=== PATIENT | female | born 1995 | race African-American/Black ===

== ENCOUNTER 2021-03-04 12:58 | Inpatient (IN) ==
[2021-03-04] MEDS: LACTATED RINGERS 1,000 ML IV SCH ×2 (12:45→14:37)
[~2021-03-04 12:58] MED LIST: BUTORPHANOL 2 MG/ML VIAL IV PRN; MEPERIDINE 50 MG/1 ML VIAL IV PRN; ONDANSETRON 4 MG/2 ML VIAL IV PRN
[2021-03-04] MEDS ORDERED: ACETAMINOPHEN 500 MG TABLET PO ONE (13:04)
[2021-03-04] MEDS ORDERED: AMPICILLIN INJ 2,000 MG in SODIUM CHLORIDE 0.9% 100 ML IV ONE (13:06)
[2021-03-04 13:18] LABS: Basophils % 0.1 % (0.0-0.8); Eosinophils # 0.1 10*3/uL (0.0-0.87); Eosinophils % 0.7 % (0.00-10.9); Hemoglobin 11.9 GM/DL (12.0-16.0); Immature Granulocytes % 0.3 %; Immature Granulocytes Absolute 0.03 #; Lymphocytes # 1.4 10*3/uL (1.4-4.0); Lymphocytes % 14.4 % (21.3-54.2); Mean Corpuscular HGB Conc 31.3 GM/DL (32-36); Mean Corpuscular Volume 94.3 FL (87-102); Mean Platelet Volume 10.3 FL (9.6-12.0); Neutrophils % 79.5 % (38.7-73.9); Red Blood Count 4.03 MC/CUMM (3.8-5.5); Red Cell Distribution Width 14.4 % (9.3-17.3)
[2021-03-04 13:20] LABS: Platelet Count 259 T/CUMM (130-400)
[2021-03-04] MEDS ORDERED: CITRIC ACID/SODIUM CITRATE 30 ML UDCUP PO ONE (13:57)
[2021-03-04] MEDS ORDERED: FAMOTIDINE 20 MG/2 ML VIAL IV ONE (13:57)
[2021-03-04] MEDS ORDERED: OXYTOCIN 10 UNIT/ML VIAL IM ONE (14:04)
[2021-03-04] MEDS ORDERED: OXYTOCIN/LR 30 UNIT/1,000 ML BAG IV ONE ×2 (14:04→17:12)
[2021-03-04] MEDS ORDERED: ONDANSETRON 4 MG/2 ML VIAL ONE (14:17)
[2021-03-04] MEDS ORDERED: PHENYLEPHRINE 1 MG/10 ML SYRINGE IV ONE (14:17)
[2021-03-04] MEDS ORDERED: ceFAZolin 2,000 MG/50 ML DUPLEX IV ONE (14:29)
[2021-03-04 15:35] LABS: Bilirubin,Urine Negative (Negative); Blood, Urine Negative (Negative); Glucose,Urine (UA) Negative (Negative); Ketones,Urine Negative (Negative); Mucus,Urine Occasional /LPF (Occasional); Nitrite,Urine Negative (Negative); Protein,Urine Negative; Squamous Epithelial Cell,Urine Occasional /HPF (0-10); Urine Appearance CLEAR (Clear); Urine Color Yellow (Yellow); Urine Specific Gravity 1.012 (1.001-1.035); Urine Urobilinogen < 2.0 EU/DL (<2.0)
[2021-03-04 15:55] LABS: Cord Arterial Blood HCO3 19.1 MMOL/L
[2021-03-04 15:57] LABS: Cord Venous Blood HCO3 20.5 MMOL/L; Cord Venous Blood PO2 20.9
[2021-03-04] MEDS ORDERED: OXYTOCIN/LR 20 UNIT/1,000 ML BAG IV ONE (16:28)
[2021-03-04] MEDS ORDERED: MAGNESIUM HYDROXIDE SUSP 30 ML UDCUP PO PRN (16:28)
[2021-03-04] MEDS ORDERED: ONDANSETRON 4 MG/2 ML VIAL IV PRN (16:28)
[2021-03-04] MEDS ORDERED: SIMETHICONE CHEW 80 MG TABLET PO PRN (16:28)
[2021-03-04] MEDS ORDERED: RHO(D) IMMUNE GLOBULIN 300 MCG SYRINGE IM ONE (16:28)
[2021-03-04] MEDS ORDERED: ACETAMINOPHEN 325 MG TABLET PO PRN (16:28)
[2021-03-04] MEDS ORDERED: LACTATED RINGERS 1,000 ML IV SCH (16:30)
[2021-03-04] MEDS ORDERED: OXYTOCIN 30 UNIT in DEXTROSE 5% LACTATED RINGERS 1,000 ML IV ONE (17:09)
[2021-03-04] MEDS ORDERED: AMPICILLIN INJ 1,000 MG in SODIUM CHLORIDE 0.9% 100 ML IV SCH (17:30)
[2021-03-04] MEDS: KETOROLAC 30 MG/1 ML VIAL IV SCH ×2 (18:02→23:34)
[2021-03-04] MEDS: ACETAMINOPHEN 500 MG TABLET PO SCH (20:06)
[2021-03-04] MEDS: DOCUSATE SODIUM 100 MG CAPSULE PO SCH (20:06)
[2021-03-04] MEDS: IBUPROFEN 800 MG TABLET PO PRN (23:41)
[2021-03-04 23:58] LABS: Eosinophils % 0.2 % (0.00-10.9); Immature Granulocytes % 0.3 %; Immature Granulocytes Absolute 0.03 #; Lymphocytes # 1.1 10*3/uL (1.4-4.0); Lymphocytes % 10.8 % (21.3-54.2); Mean Corpuscular Volume 95.1 FL (87-102); Mean Platelet Volume 10.9 FL (9.6-12.0); Monocytes % 5.5 % (1.7-12.7); Neutrophils % 83.2 % (38.7-73.9); Red Cell Distribution Width 14.4 % (9.3-17.3)
[2021-03-04 23:59] LABS: Red Blood Count 3.05 MC/CUMM (3.8-5.5)
[2021-03-05] LABS: Platelet Count 157 T/CUMM (130-400)
[2021-03-05] MEDS: ACETAMINOPHEN 500 MG TABLET PO SCH ×3 (01:44→15:55)
[2021-03-05] MEDS: KETOROLAC 30 MG/1 ML VIAL IV SCH ×3 (05:30→18:42)
[2021-03-05 05:54] LABS: Basophils % 0.1 % (0.0-0.8); Eosinophils # 0.2 10*3/uL (0.0-0.87); Eosinophils % 1.2 % (0.00-10.9); Hematocrit 31.8 VOL% (35.7-47.0); Hemoglobin 10.1 GM/DL (12.0-16.0); Immature Granulocytes % 0.3 %; Immature Granulocytes Absolute 0.04 #; Lymphocytes # 1.5 10*3/uL (1.4-4.0); Lymphocytes % 12.4 % (21.3-54.2); Mean Corpuscular HGB Conc 31.8 GM/DL (32-36); Mean Corpuscular Volume 94.1 FL (87-102); Mean Platelet Volume 10.7 FL (9.6-12.0); Monocytes % 5.6 % (1.7-12.7); Neutrophils % 80.4 % (38.7-73.9); Platelet Count 184 T/CUMM (130-400); Red Blood Count 3.38 MC/CUMM (3.8-5.5); Red Cell Distribution Width 14.5 % (9.3-17.3); White Blood Count 12.1 T/CUMM (4-12)
[2021-03-05 06:33] LABS: Rubella Antibody IgG Result Reactive (NonReactive)
[2021-03-05] MEDS: MULTIVITAMIN (PRENATAL) TABLET PO SCH (08:34)
[2021-03-05] MEDS: METOCLOPRAMIDE 10 MG TABLET PO SCH ×2 (08:34→20:33)
[2021-03-05] MEDS: DOCUSATE SODIUM 100 MG CAPSULE PO SCH ×2 (08:35→20:27)
[2021-03-05] MEDS ORDERED: ACETAMINOPHEN 500 MG TABLET PO SCH (16:00)
[2021-03-06] MEDS: IBUPROFEN 800 MG TABLET PO PRN (03:36)
[2021-03-06] MEDS: METOCLOPRAMIDE 10 MG TABLET PO SCH ×2 (03:49→07:58)
[2021-03-06 07:40] VITALS: BP 113/66
[2021-03-06] MEDS: MULTIVITAMIN (PRENATAL) TABLET PO SCH (09:00)
[2021-03-06] MEDS: DOCUSATE SODIUM 100 MG CAPSULE PO SCH (09:00)
== END 2021-03-06 10:20 | disposition home or self-care (01) | DRG 540 ==
LOC: N.LD → N.OB 20:25
PROVIDERS: ADMIT Obstetrics & Gynecology; ATTEND Obstetrics & Gynecology
PROC: LDCSECT (ICD-10-PCS; 2021-03-04 14:30)